=== PATIENT | female | born 1970 | race Caucasian/White ===

== ENCOUNTER → 2018-03-12 16:08 | Outpatient (REF) | payer MEDICAID, SELFPAY ==
[2018-03-12 19:22] LABS: Amphetamine/Metha Screen,Urine Negative ng/mL (<1000); Barbiturates Screen,Urine Negative ng/mL (<200); Benzodiazepines Screen,Urine Negative ng/mL (200); Cannabinoid Screen,Urine Negative ng/mL (<50); Cocaine Screen,Urine Negative ng/g (<300); Methadone Screen,Urine Negative ng/mL (<300); Opiate Screen,Urine Negative ng/mL (<300); Phencyclidine Screen,Urine Negative ng/mL (<25)
== END ==
LOC: LAB 16:08
PROVIDERS: Visit Provider Emergency Medicine
DX: Z79.899 Other long term (current) drug therapy (principal)
CPT/HCPCS: 80305

== ENCOUNTER → 2018-04-08 13:31 | Outpatient (REF) | payer MEDICAID, SELFPAY ==
[2018-04-08 19:20] LABS: Amphetamine/Metha Screen,Urine Negative ng/mL (<1000); Barbiturates Screen,Urine Negative ng/mL (<200); Benzodiazepines Screen,Urine Negative ng/mL (200); Cannabinoid Screen,Urine Negative ng/mL (<50); Cocaine Screen,Urine Negative ng/g (<300); Methadone Screen,Urine Negative ng/mL (<300); Opiate Screen,Urine Negative ng/mL (<300); Phencyclidine Screen,Urine Negative ng/mL (<25)
== END ==
LOC: LAB 13:31
PROVIDERS: Visit Provider Emergency Medicine
DX: Z79.899 Other long term (current) drug therapy (principal)
CPT/HCPCS: 80305

== ENCOUNTER → 2018-05-13 13:40 | Outpatient (REF) | payer MEDICAID, SELFPAY ==
[2018-05-13 18:29] LABS: Amphetamine/Metha Screen,Urine Negative ng/mL (<1000); Barbiturates Screen,Urine Negative ng/mL (<200); Benzodiazepines Screen,Urine Negative ng/mL (200); Cannabinoid Screen,Urine Negative ng/mL (<50); Cocaine Screen,Urine Negative ng/g (<300); Methadone Screen,Urine Negative ng/mL (<300); Opiate Screen,Urine Negative ng/mL (<300); Phencyclidine Screen,Urine Negative ng/mL (<25)
== END ==
LOC: LAB 13:40
PROVIDERS: Visit Provider Emergency Medicine
DX: Z79.899 Other long term (current) drug therapy (principal)
CPT/HCPCS: 80305

== ENCOUNTER → 2018-06-12 08:00 | Outpatient (CLI) | payer MEDICAID, SELFPAY ==
--- NOTE | 2018-06-12 08:03 | MR_ITS ---
MR lumbar spine wo con, MR 3-d myelogram/MRCP Ordering Physician: Willy Lechuga MD Patient Age: 47 years: Female HISTORY: ITS.REASON: back pain Low back pain for 5 years left leg pain inta TECHNIQUE: Sagittal STIR, T1, T2, axial T1 and T2. On 1.5T Siemens wide bore MRI. 3-D MR myelogram image set obtained & performed on MRI workstation. Additional sagittal thin section T2 weighted dataset obtained from this latter acquisition as well (---76 CPT) COMPARISON :None FINDINGS L5/S1 narrowed disc space. Reactive changes are seen about the anterior right aspect of this narrowed disc space. Diffuse disc bulge with additional leftward disc protrusion at left foramen., (nicely seen on sagittal slice 11 ,12, axial 15,.) There is some hypertrophic spurring of the left foramen contributing to this appearance is well, sagittal slice 12. These features along with facet hypertrophy yields a fairly pronounced left foraminal encroachment. It would correlate with L5 radicular symptoms is present. Neurosurgery consult warranted . L4/5: Mild eccentric disc bulge towards the left foramen. Increased signal at the posterior disc margin may reflect an area of annular fissure, sagittal slice 11. Moderate facet and ligament flavum hypertrophy. Overall Mild/moderate left foraminal encroachment L3/4. Disc intact scant bulge. Minor posterior element hypertrophy L2/3. Disc intact. L1/2 disc intact T12/L1 disc intact T11/12 mild disc space narrowing mild diffuse disc bulge 3-D MRI myelogram image set shows no significant stenosis at the thecal sac. There may be some subtle asymmetric density nerve roots at the L5-S1 level. The described disc protrusion is far lateral and yields little impact upon such. IMPRESSION: L5/S1 degenerated disc bulge with left left foraminal disc protrusion/herniation Prominent left foraminal encroachment encroaches upon the left L5 nerve root L4/5 asymmetric bulge to the left, yields mild/moderate left foraminal encroachment Possible high signal small annular fissure along this bulging posterior disc margin at left foramen at left foramen
== END ==
PROVIDERS: PCP Emergency Medicine; Visit Provider Emergency Medicine
DX: M54.9 Dorsalgia, unspecified (principal)
CPT/HCPCS: 72148; 76376

== ENCOUNTER → 2018-06-14 10:44 | Outpatient (REF) | payer MEDICAID, SELFPAY ==
[2018-06-14 14:17] LABS: Amphetamine/Metha Screen,Urine Negative ng/mL (<1000); Barbiturates Screen,Urine Negative ng/mL (<200); Benzodiazepines Screen,Urine Negative ng/mL (<200); Cannabinoid Screen,Urine Negative ng/mL (<50); Cocaine Screen,Urine Negative ng/mL (<300); Methadone Screen,Urine Negative ng/mL (<300); Opiate Screen,Urine Positive ng/mL (<300); Phencyclidine Screen,Urine Negative ng/mL (<25)
== END ==
LOC: LAB 10:44
PROVIDERS: Visit Provider Emergency Medicine
DX: Z79.899 Other long term (current) drug therapy (principal)
CPT/HCPCS: 80305

== ENCOUNTER → 2018-07-04 13:23 | Outpatient (POV) | payer MEDICAID, SELFPAY | PROVIDERS: PCP Emergency Medicine; Visit Provider Neurological Surgery | DX: Z00.00 Encounter for general adult medical examination without abnormal findings (principal) ==

== ENCOUNTER → 2018-07-10 10:46 | Outpatient (REF) | payer MEDICAID, SELFPAY ==
[2018-07-10 14:01] LABS: Amphetamine/Metha Screen,Urine Negative ng/mL (<1000); Barbiturates Screen,Urine Negative ng/mL (<200); Benzodiazepines Screen,Urine Negative ng/mL (<200); Cannabinoid Screen,Urine Negative ng/mL (<50); Cocaine Screen,Urine Negative ng/mL (<300); Methadone Screen,Urine Negative ng/mL (<300); Opiate Screen,Urine Negative ng/mL (<300); Phencyclidine Screen,Urine Negative ng/mL (<25)
== END ==
LOC: LAB 10:46
PROVIDERS: Visit Provider Emergency Medicine
DX: Z79.899 Other long term (current) drug therapy (principal)
CPT/HCPCS: 80305

== ENCOUNTER → 2018-08-29 08:36 | Outpatient (CLI) | payer MEDICAID, SELFPAY ==
--- NOTE | 2018-08-29 08:39 | XR_ITS ---
XR wrist RT min 3V Ordering Physician: Wayne Shane MD Patient Age: 48 years: Female HISTORY: ITS.REASON: right wrist pain TECHNIQUE: 3 views right wrist COMPARISON :None FINDINGS Right wrist intact with no acute appearing fracture evident.. On close inspection there is a small osseous density off the ulnar margin of the radius just distal to the ulnar base radial articulation. This seems to be corticated and most likely a small old fragment which measures 4.4 mm length x 2.5 mm wide.. Correlation required..Distal radius and ulna are otherwise unremarkable The proximal carpal row appears satisfactory with normal relationships. The fat plane along anterior wrist appears normal. IMPRESSION: No definitive acute findings or fracture. Small most likely old corticated small osseous fragment is seen along ulnar margin radius articular surface., just distal to the radial -ulnar articulation.. may reflect old trauma feature here . No prior films for comparison . Clinical correlation required.
== END ==
PROVIDERS: PCP Emergency Medicine; Visit Provider Orthopaedic Surgery
DX: M25.531 Pain in right wrist (principal)
CPT/HCPCS: 73110

== ENCOUNTER 2018-08-29 10:17 | Outpatient (RCR) | payer MEDICAID, SELFPAY | END 2018-08-29 13:45 | disposition home or self-care (01) | LOC: OT 10:17 | PROVIDERS: PCP Emergency Medicine; Visit Provider Orthopaedic Surgery | DX: G56.01 Carpal tunnel syndrome, right upper limb (principal) | CPT/HCPCS: 97760 ==

== ENCOUNTER → 2018-09-03 14:18 | Outpatient (REF) | payer MEDICAID, SELFPAY ==
[2018-09-03 21:08] LABS: Amphetamine/Metha Screen,Urine Negative ng/mL (<1000); Barbiturates Screen,Urine Negative ng/mL (<200); Benzodiazepines Screen,Urine Negative ng/mL (<200); Cannabinoid Screen,Urine Negative ng/mL (<50); Cocaine Screen,Urine Negative ng/mL (<300); Methadone Screen,Urine Negative ng/mL (<300); Opiate Screen,Urine Positive ng/mL (<300); Phencyclidine Screen,Urine Negative ng/mL (<25)
== END ==
LOC: LAB 14:18
PROVIDERS: Visit Provider Emergency Medicine
DX: Z79.899 Other long term (current) drug therapy (principal)
CPT/HCPCS: 80305

== ENCOUNTER → 2018-10-02 19:38 | Outpatient (CLI) | payer MEDICAID, SELFPAY ==
[2018-10-02 21:24] LABS: Amphetamine/Metha Screen,Urine Negative ng/mL (<1000); Barbiturates Screen,Urine Negative ng/mL (<200); Benzodiazepines Screen,Urine Negative ng/mL (<200); Cannabinoid Screen,Urine Negative ng/mL (<50); Cocaine Screen,Urine Negative ng/mL (<300); Methadone Screen,Urine Negative ng/mL (<300); Opiate Screen,Urine Positive ng/mL (<300); Phencyclidine Screen,Urine Negative ng/mL (<25)
== END ==
PROVIDERS: Visit Provider Emergency Medicine
DX: Z79.899 Other long term (current) drug therapy (principal)
CPT/HCPCS: 80305

== ENCOUNTER → 2018-11-01 14:46 | Outpatient (CLI) | payer MEDICAID, SELFPAY ==
[2018-11-01 16:39] LABS: Amphetamine/Metha Screen,Urine Negative ng/mL (<1000); Barbiturates Screen,Urine Negative ng/mL (<200); Benzodiazepines Screen,Urine Negative ng/mL (<200); Cannabinoid Screen,Urine Negative ng/mL (<50); Cocaine Screen,Urine Negative ng/mL (<300); Methadone Screen,Urine Negative ng/mL (<300); Opiate Screen,Urine Negative ng/mL (<300); Phencyclidine Screen,Urine Negative ng/mL (<25)
[2018-11-09 07:13] LABS: Oxycodone (GC/MS) 212 ng/mL (Cutoff=100)
[2018-11-09 14:00] LABS: Opiates Negative (Cutoff=100)
== END ==
PROVIDERS: Visit Provider Emergency Medicine
DX: Z79.899 Other long term (current) drug therapy (principal)
CPT/HCPCS: 80305; 80361; 80365; G0480

== ENCOUNTER → 2018-11-29 14:29 | Outpatient (CLI) | payer MEDICAID, SELFPAY ==
[2018-11-29 16:02] LABS: Amphetamine/Metha Screen,Urine Negative ng/mL (<1000); Barbiturates Screen,Urine Negative ng/mL (<200); Benzodiazepines Screen,Urine Negative ng/mL (<200); Cannabinoid Screen,Urine Negative ng/mL (<50); Cocaine Screen,Urine Positive ng/mL (<300); Methadone Screen,Urine Negative ng/mL (<300); Opiate Screen,Urine Negative ng/mL (<300); Phencyclidine Screen,Urine Negative ng/mL (<25)
[2018-12-05 07:18] LABS: Benzoylecgonine (GC/MS) 475 ng/mL (Cutoff=150); Cocaine + Metabolite Positive (.)
== END ==
PROVIDERS: Visit Provider Emergency Medicine
DX: Z79.899 Other long term (current) drug therapy (principal)
CPT/HCPCS: 80305; 80353

== ENCOUNTER → 2018-12-30 13:42 | Outpatient (CLI) | payer MEDICAID, SELFPAY ==
[2018-12-30 14:13] LABS: Amphetamine/Metha Screen,Urine Negative ng/mL (<1000); Barbiturates Screen,Urine Negative ng/mL (<200); Benzodiazepines Screen,Urine Negative ng/mL (<200); Cannabinoid Screen,Urine Negative ng/mL (<50); Cocaine Screen,Urine Negative ng/mL (<300); Methadone Screen,Urine Negative ng/mL (<300); Opiate Screen,Urine Negative ng/mL (<300); Phencyclidine Screen,Urine Negative ng/mL (<25)
== END ==
PROVIDERS: Visit Provider Emergency Medicine
DX: Z79.899 Other long term (current) drug therapy (principal)
CPT/HCPCS: 80305

== ENCOUNTER → 2019-01-06 13:32 | Outpatient (CLI) | payer MEDICAID, SELFPAY ==
[2019-01-06 14:28] LABS: Amphetamine/Metha Screen,Urine Negative ng/mL (<1000); Barbiturates Screen,Urine Negative ng/mL (<200); Benzodiazepines Screen,Urine Negative ng/mL (<200); Cannabinoid Screen,Urine Negative ng/mL (<50); Cocaine Screen,Urine Negative ng/mL (<300); Methadone Screen,Urine Negative ng/mL (<300); Opiate Screen,Urine Negative ng/mL (<300); Phencyclidine Screen,Urine Negative ng/mL (<25)
== END ==
PROVIDERS: Visit Provider Emergency Medicine
DX: Z79.899 Other long term (current) drug therapy (principal)
CPT/HCPCS: 80305

== ENCOUNTER → 2019-01-20 14:35 | Outpatient (CLI) | payer MEDICAID, SELFPAY ==
[2019-01-20 16:04] LABS: Amphetamine/Metha Screen,Urine Negative ng/mL (<1000); Barbiturates Screen,Urine Negative ng/mL (<200); Benzodiazepines Screen,Urine Negative ng/mL (<200); Cannabinoid Screen,Urine Negative ng/mL (<50); Cocaine Screen,Urine Negative ng/mL (<300); Methadone Screen,Urine Negative ng/mL (<300); Opiate Screen,Urine Negative ng/mL (<300); Phencyclidine Screen,Urine Negative ng/mL (<25)
[2019-01-27 17:11] LABS: Oxycodone (GC/MS) 685 ng/mL (Cutoff=100)
[2019-01-28 03:10] LABS: Opiates Negative (Cutoff=100); Oxymorphone (GC/MS) 257 ng/mL (Cutoff=100)
== END ==
PROVIDERS: Visit Provider Emergency Medicine
DX: Z79.899 Other long term (current) drug therapy (principal)
CPT/HCPCS: 80305; 80361; 80365; G0480

== ENCOUNTER → 2019-03-19 13:42 | Outpatient (CLI) | payer MEDICAID, SELFPAY ==
[2019-03-19 15:01] LABS: Amphetamine/Metha Screen,Urine Negative ng/mL (<1000); Barbiturates Screen,Urine Negative ng/mL (<200); Benzodiazepines Screen,Urine Negative ng/mL (<200); Cannabinoid Screen,Urine Negative ng/mL (<50); Cocaine Screen,Urine Negative ng/mL (<300); Methadone Screen,Urine Negative ng/mL (<300); Opiate Screen,Urine Positive ng/mL (<300); Phencyclidine Screen,Urine Negative ng/mL (<25)
== END ==
PROVIDERS: Visit Provider Emergency Medicine
DX: N39.0 Urinary tract infection, site not specified (principal); M54.9 Dorsalgia, unspecified
CPT/HCPCS: 80305; 87086; 87088; 87186

== ENCOUNTER → 2019-05-19 13:38 | Outpatient (CLI) | payer MEDICAID, SELFPAY ==
[2019-05-19 14:28] LABS: Amphetamine/Metha Screen,Urine Negative ng/mL (<1000); Barbiturates Screen,Urine Negative ng/mL (<200); Benzodiazepines Screen,Urine Negative ng/mL (<200); Cannabinoid Screen,Urine Negative ng/mL (<50); Cocaine Screen,Urine Negative ng/mL (<300); Methadone Screen,Urine Negative ng/mL (<300); Opiate Screen,Urine Negative ng/mL (<300); Phencyclidine Screen,Urine Negative ng/mL (<25)
== END ==
PROVIDERS: Visit Provider Emergency Medicine
DX: Z79.899 Other long term (current) drug therapy (principal)
CPT/HCPCS: 80305

== ENCOUNTER → 2019-07-18 08:06 | Outpatient (CLI) | payer MEDICAID, SELFPAY ==
[2019-07-22 13:11] LABS: Amphetamine/Metha Screen,Urine Negative ng/mL (<1000); Barbiturates Screen,Urine Negative ng/mL (<200); Benzodiazepines Screen,Urine Negative ng/mL (<200); Cannabinoid Screen,Urine Negative ng/mL (<50); Cocaine Screen,Urine Negative ng/mL (<300); Methadone Screen,Urine Negative ng/mL (<300); Opiate Screen,Urine Positive ng/mL (<300); Phencyclidine Screen,Urine Negative ng/mL (<25)
== END ==
PROVIDERS: Visit Provider Emergency Medicine
DX: M54.9 Dorsalgia, unspecified (principal)
CPT/HCPCS: 80305

== ENCOUNTER → 2019-09-16 13:24 | Outpatient (CLI) | payer MEDICAID, SELFPAY ==
[2019-09-16 14:31] LABS: Amphetamine/Metha Screen,Urine Negative ng/mL (<1000); Barbiturates Screen,Urine Negative ng/mL (<200); Benzodiazepines Screen,Urine Negative ng/mL (<200); Cannabinoid Screen,Urine Negative ng/mL (<50); Cocaine Screen,Urine Negative ng/mL (<300); Methadone Screen,Urine Negative ng/mL (<300); Opiate Screen,Urine Negative ng/mL (<300); Phencyclidine Screen,Urine Negative ng/mL (<25)
[2019-09-26 10:15] LABS: Oxycodone (GC/MS) 2750 ng/mL (Cutoff=100)
[2019-09-26 17:14] LABS: Opiates Negative (Cutoff=100)
== END ==
PROVIDERS: Visit Provider Emergency Medicine
DX: Z79.899 Other long term (current) drug therapy (principal)
CPT/HCPCS: 80305; 80361; 80365; G0480

== ENCOUNTER → 2019-11-03 14:26 | Outpatient (CLI) | payer MEDICAID, SELFPAY ==
[2019-11-03 16:11] LABS: Amphetamine/Metha Screen,Urine Negative ng/mL (<1000); Barbiturates Screen,Urine Negative ng/mL (<200); Benzodiazepines Screen,Urine Negative ng/mL (<200); Cannabinoid Screen,Urine Negative ng/mL (<50); Cocaine Screen,Urine Negative ng/mL (<300); Methadone Screen,Urine Negative ng/mL (<300); Opiate Screen,Urine Negative ng/mL (<300); Phencyclidine Screen,Urine Negative ng/mL (<25)
== END ==
PROVIDERS: Visit Provider Emergency Medicine
DX: M54.9 Dorsalgia, unspecified (principal); Z79.899 Other long term (current) drug therapy
CPT/HCPCS: 80305

== ENCOUNTER → 2020-06-01 14:36 | Outpatient (CLI) | payer MEDICAID, SELFPAY ==
[2020-06-01 14:52] LABS: Basophils % 0.7 % (0.1-2.0); Eosinophils # 0.1 K/mm3 (0.0-0.4); Eosinophils % 2.5 % (0.1-12.0); Hematocrit 46.7 % (37.0-47.0); Hemoglobin 15.8 g/dL (12.2-16.2); Lymphocytes # 1.7 K/mm3 (0.7-4.5); Mean Corpuscular HGB Conc 33.9 g/dL (31.8-35.4); Mean Corpuscular Hemoglobin 35.3 pg (27.0-31.2); Mean Corpuscular Volume 104.2 fl (81-99); Mean Platelet Volume 8.4 fl (7.4-10.4); Monocytes # 0.3 K/mm3 (0.1-1.0); Monocytes % 5.1 % (1.7-9.3); Neutrophils # 3.2 K/mm3 (1.8-7.8); Neutrophils % 59.7 % (37.0-80.0); Platelet Count 240 K/mm3 (142-424); Red Blood Count 4.48 M/mm3 (4.20-5.40); Red Cell Distribution Width 13.3 % (11.5-17.5); White Blood Count 5.4 K/mm3 (4.8-10.8)
[2020-06-01 15:09] LABS: Chloride 103 mmol/L (98-107); Sodium 139 mmol/L (136-145)
[2020-06-01 15:11] LABS: Alanine Aminotransferase 12 U/L (12-78); Aspartate Amino Transferase 30 U/L (14-36); Blood Urea Nitrogen 9 mg/dl (7-17); Estimated Glomerular Filt Rate 89 ml/min (>60); GFR (African American) 108 ML/MIN (>60)
[2020-06-01 15:12] LABS: Albumin Level 4.2 g/dl (3.5-5.0); Albumin/Globulin Ratio 1.6 (1.1-1.8); Alkaline Phosphatase 95 U/L (38-126); Bilirubin,Total 0.8 mg/dl (0.2-1.3); Calcium 9.3 mg/dl (8.4-10.2); Carbon Dioxide 28 mmol/L (22.0-30.0); Chol/HDL Ratio 2.8 (1-3.5); Cholesterol 196 mg/dl (140-200); Globulin 2.7 g/dL (1.3-3.2); Glucose 66 mg/dl (74-100); HDL Cholesterol 71 mg/dl (40-60); Total Protein,Serum 6.9 g/dl (6.3-8.2); Triglycerides 110 mg/dl (30-150); VLDL Cholesterol 22 mg/dL (0-40)
[2020-06-01 15:23] LABS: Direct LDL Cholesterol 111.09 mg/dL (100-129)
[2020-06-01 15:29] LABS: T4 (Thyroxine) 4.6 ug/dl (5.53-11.0)
[2020-06-01 15:42] LABS: Thyroid Stimulating Hormone 4.68 uIU/mL (0.465-4.68)
[2020-06-04 15:31] LABS: Vitamin B12 280 pg/mL (232-1245)
[2020-06-08 15:18] LABS: 1,25 Dihydroxy Vitamin D 55 pg/mL (.); 1,25-Dihydroxy, Vitamin D-2 <10 pg/mL (.); 1,25-Dihydroxy, Vitamin D-3 54 pg/mL (.)
== END ==
PROVIDERS: Physician Assistant; Visit Provider Emergency Medicine
DX: F41.9 Anxiety disorder, unspecified (principal); E53.8 Deficiency of other specified B group vitamins
CPT/HCPCS: 80053; 80061; 82607; 82652; 84436; 84443; 85025

== ENCOUNTER → 2020-10-19 09:54 | Outpatient (CLI) | payer MEDICAID, SELFPAY ==
--- NOTE | 2020-10-19 09:54 | MM_ITS ---
PROCEDURE: MM DIG SCREENING MAMM BI W/CAD Digital Breast Tomosynthesis Included CLINICAL INDICATION: screening There is no personal or family history of breast cancer. COMPARISON: [facility] MAMMO SCREENING DIGITAL BILAT from 07/06/2015 outside films MG Screening-Bilateral Mammography from 11/01/2017 outside films TECHNIQUE: Standard CC and MLO images and 3D Tomosynthesis was obtained. R2 CAD reviewed. FINDINGS: Moderate diffuse fibroglandular densities are seen throughout both breasts. There is a mole marker right breast. The findings are bilateral and symmetrical. There is no new or suspicious lesion in either breast and no suspicious microcalcifications. IMPRESSION: Moderate breast density with no suspicious lesions seen BI-RAD Category: 2 Benign Finding(s) FOLLOW-UP: 1YR 1 Year Follow-up (A letter has been sent to the patient regarding results of the study.) Dictated by: Dr. Duane Toro MD 10/28/2020 15:42 Dr. Duane Toro MD in [place] 10/28/2020 15:42
== END ==
PROVIDERS: PCP Emergency Medicine; Visit Provider Emergency Medicine
DX: Z12.31 Encounter for screening mammogram for malignant neoplasm of breast (principal)
CPT/HCPCS: 77063; 77067

== ENCOUNTER → 2021-03-18 14:27 | Outpatient (CLI) | payer MEDICAID, SELFPAY ==
[2021-03-18 15:50] LABS: Amphetamine/Metha Screen,Urine Negative ng/ml (<1000); Barbiturates Screen,Urine Negative ng/ml (<200)
[2021-03-18 15:51] LABS: Benzodiazepines Screen,Urine Negative ng/ml (<200); Cannabinoid Screen,Urine Negative ng/ml (<50)
[2021-03-18 15:53] LABS: Cocaine Screen,Urine Negative ng/ml (<300); Methadone Screen,Urine Negative ng/ml (<300)
[2021-03-18 15:54] LABS: Opiate Screen,Urine Negative ng/ml (<300)
[2021-03-18 15:55] LABS: Phencyclidine Screen,Urine Negative ng/ml (<25)
== END ==
PROVIDERS: Visit Provider Emergency Medicine
DX: Z79.899 Other long term (current) drug therapy (principal)
CPT/HCPCS: 80305

== ENCOUNTER → 2021-05-18 13:01 | Outpatient (CLI) | payer MEDICAID, SELFPAY ==
[2021-05-18 14:03] LABS: Amphetamine/Metha Screen,Urine Negative ng/ml (<1000)
[2021-05-18 14:04] LABS: Barbiturates Screen,Urine Negative ng/ml (<200)
[2021-05-18 14:06] LABS: Benzodiazepines Screen,Urine Negative ng/ml (<200); Cannabinoid Screen,Urine Positive ng/ml (<50)
[2021-05-18 14:07] LABS: Cocaine Screen,Urine Positive ng/ml (<300)
[2021-05-18 14:08] LABS: Methadone Screen,Urine Negative ng/ml (<300)
[2021-05-18 14:09] LABS: Opiate Screen,Urine Positive ng/ml (<300)
[2021-05-18 14:10] LABS: Phencyclidine Screen,Urine Negative ng/ml (<25)
== END ==
PROVIDERS: Visit Provider Emergency Medicine
DX: Z79.899 Other long term (current) drug therapy (principal); R82.90 Unspecified abnormal findings in urine; Z51.81 Encounter for therapeutic drug level monitoring; Z79.891 Long term (current) use of opiate analgesic
CPT/HCPCS: 80305; 87086

== ENCOUNTER → 2021-06-21 19:59 | Outpatient (CLI) | payer MEDICAID, SELFPAY ==
[2021-06-21 21:10] LABS: Amphetamine/Metha Screen,Urine Negative ng/ml (<1000)
[2021-06-21 21:11] LABS: Barbiturates Screen,Urine Negative ng/ml (<200)
[2021-06-21 21:13] LABS: Benzodiazepines Screen,Urine Positive ng/ml (<200); Cannabinoid Screen,Urine Negative ng/ml (<50)
[2021-06-21 21:14] LABS: Cocaine Screen,Urine Negative ng/ml (<300)
[2021-06-21 21:15] LABS: Methadone Screen,Urine Negative ng/ml (<300); Opiate Screen,Urine Negative ng/ml (<300)
[2021-06-21 21:16] LABS: Phencyclidine Screen,Urine Negative ng/ml (<25)
== END ==
PROVIDERS: Visit Provider Emergency Medicine
DX: Z79.899 Other long term (current) drug therapy (principal)
CPT/HCPCS: 80305

== ENCOUNTER → 2021-07-29 17:53 | Outpatient (CLI) | payer MEDICAID, SELFPAY ==
[2021-07-29 19:44] LABS: Barbiturates Screen,Urine Negative ng/ml (<200)
[2021-07-29 19:45] LABS: Amphetamine/Metha Screen,Urine Negative ng/ml (<1000); Benzodiazepines Screen,Urine Positive ng/ml (<200)
[2021-07-29 19:46] LABS: Cocaine Screen,Urine Negative ng/ml (<300)
[2021-07-29 19:47] LABS: Cannabinoid Screen,Urine Negative ng/ml (<50); Methadone Screen,Urine Negative ng/ml (<300)
[2021-07-29 19:48] LABS: Opiate Screen,Urine Positive ng/ml (<300); Phencyclidine Screen,Urine Negative ng/ml (<25)
== END ==
PROVIDERS: Visit Provider Emergency Medicine
DX: Z79.899 Other long term (current) drug therapy (principal)
CPT/HCPCS: 80305

== ENCOUNTER → 2021-10-28 13:42 | Outpatient (CLI) | payer MEDICAID, SELFPAY ==
[2021-10-28 14:31] LABS: Benzodiazepines Screen,Urine Negative ng/ml (<200)
[2021-10-28 14:32] LABS: Barbiturates Screen,Urine Negative ng/ml (<200)
[2021-10-28 14:33] LABS: Cannabinoid Screen,Urine Positive ng/ml (<50)
[2021-10-28 14:34] LABS: Cocaine Screen,Urine Positive ng/ml (<300); Methadone Screen,Urine Negative ng/ml (<300)
[2021-10-28 14:35] LABS: Opiate Screen,Urine Positive ng/ml (<300)
[2021-10-28 14:36] LABS: Phencyclidine Screen,Urine Negative ng/ml (<25)
[2021-10-28 21:54] LABS: Amphetamine/Metha Screen,Urine Positive ng/ml (<1000)
== END ==
PROVIDERS: Visit Provider Emergency Medicine
DX: M51.16 Intervertebral disc disorders with radiculopathy, lumbar region (principal)
CPT/HCPCS: 80305

== ENCOUNTER → 2021-11-28 12:33 | Outpatient (CLI) | payer MEDICAID, SELFPAY | PROVIDERS: PCP Emergency Medicine; Visit Provider Nurse Practitioner | DX: U07.1 COVID-19 (principal) | CPT/HCPCS: C9803; U0003; U0005 ==

== ENCOUNTER → 2021-11-28 13:58 | Outpatient (CLI) | payer MEDICAID, SELFPAY ==
[2021-11-28 14:53] LABS: Amphetamine/Metha Screen,Urine Negative ng/ml (<1000)
[2021-11-28 14:55] LABS: Barbiturates Screen,Urine Negative ng/ml (<200); Cannabinoid Screen,Urine Negative ng/ml (<50)
[2021-11-28 14:56] LABS: Benzodiazepines Screen,Urine Negative ng/ml (<200); Cocaine Screen,Urine Negative ng/ml (<300)
[2021-11-28 14:57] LABS: Methadone Screen,Urine Negative ng/ml (<300)
[2021-11-28 14:58] LABS: Opiate Screen,Urine Negative ng/ml (<300); Phencyclidine Screen,Urine Negative ng/ml (<25)
== END ==
PROVIDERS: Visit Provider Emergency Medicine
DX: M51.16 Intervertebral disc disorders with radiculopathy, lumbar region (principal)
CPT/HCPCS: 80305

== ENCOUNTER → 2022-01-20 11:40 | Outpatient (CLI) | payer MEDICAID, SELFPAY ==
[2022-01-20 18:21] LABS: Amphetamine/Metha Screen,Urine Negative ng/ml (<1000); Barbiturates Screen,Urine Negative ng/ml (<200)
[2022-01-20 18:22] LABS: Benzodiazepines Screen,Urine Negative ng/ml (<200)
[2022-01-20 18:23] LABS: Cannabinoid Screen,Urine Negative ng/ml (<50); Cocaine Screen,Urine Negative ng/ml (<300)
[2022-01-20 18:24] LABS: Methadone Screen,Urine Negative ng/ml (<300)
[2022-01-20 18:25] LABS: Opiate Screen,Urine Positive ng/ml (<300)
[2022-01-20 18:26] LABS: Phencyclidine Screen,Urine Negative ng/ml (<25)
== END ==
PROVIDERS: Visit Provider Emergency Medicine
DX: M51.16 Intervertebral disc disorders with radiculopathy, lumbar region (principal)
CPT/HCPCS: 80305

== ENCOUNTER → 2022-03-27 11:30 | Outpatient (CLI) | payer MEDICAID, SELFPAY ==
[2022-03-27 13:43] LABS: Phencyclidine Screen,Urine Negative ng/ml (<25)
[2022-03-27 13:44] LABS: Amphetamine/Metha Screen,Urine Negative ng/ml (<1000)
[2022-03-27 13:45] LABS: Barbiturates Screen,Urine Negative ng/ml (<200)
[2022-03-27 13:46] LABS: Benzodiazepines Screen,Urine Negative ng/ml (<200); Cannabinoid Screen,Urine Negative ng/ml (<50)
[2022-03-27 13:47] LABS: Cocaine Screen,Urine Positive ng/ml (<300); Methadone Screen,Urine Negative ng/ml (<300)
[2022-03-27 13:48] LABS: Opiate Screen,Urine Positive ng/ml (<300)
== END ==
PROVIDERS: PCP Emergency Medicine; Visit Provider Emergency Medicine
DX: Z79.899 Other long term (current) drug therapy (principal)
CPT/HCPCS: 80305

== ENCOUNTER → 2022-05-24 13:55 | Outpatient (CLI) | payer MEDICAID, SELFPAY ==
[2022-05-24 13:42] LABS: Barbiturates Screen,Urine Negative ng/ml (<200)
[2022-05-24 13:43] LABS: Benzodiazepines Screen,Urine Negative ng/ml (<200); Cannabinoid Screen,Urine Positive ng/ml (<50)
[2022-05-24 13:44] LABS: Cocaine Screen,Urine Positive ng/ml (<300)
[2022-05-24 13:45] LABS: Methadone Screen,Urine Negative ng/ml (<300); Opiate Screen,Urine Negative ng/ml (<300)
[2022-05-24 13:46] LABS: Phencyclidine Screen,Urine Negative ng/ml (<25)
[2022-05-24 15:43] LABS: Amphetamine/Metha Screen,Urine Positive ng/ml (<1000)
== END ==
PROVIDERS: PCP Emergency Medicine; Visit Provider Emergency Medicine
DX: Z79.899 Other long term (current) drug therapy (principal)
CPT/HCPCS: 80305

== ENCOUNTER → 2022-07-19 06:25 | Outpatient (CLI) | payer MEDICAID, SELFPAY ==
[2022-07-19 18:44] LABS: Amphetamine/Metha Screen,Urine Negative ng/ml (<1000); Barbiturates Screen,Urine Negative ng/ml (<200)
[2022-07-19 18:45] LABS: Benzodiazepines Screen,Urine Negative ng/ml (<200); Cannabinoid Screen,Urine Positive ng/ml (<50)
[2022-07-19 18:46] LABS: Cocaine Screen,Urine Positive ng/ml (<300)
[2022-07-19 18:47] LABS: Methadone Screen,Urine Negative ng/ml (<300); Opiate Screen,Urine Negative ng/ml (<300)
[2022-07-19 18:48] LABS: Phencyclidine Screen,Urine Negative ng/ml (<25)
== END ==
PROVIDERS: PCP Emergency Medicine; Visit Provider Emergency Medicine
DX: Z79.899 Other long term (current) drug therapy (principal)
CPT/HCPCS: 80305

== ENCOUNTER → 2022-08-18 15:56 | Outpatient (CLI) | payer MEDICAID, SELFPAY ==
[2022-08-18 14:53] LABS: Barbiturates Screen,Urine Negative ng/ml (<200)
[2022-08-18 14:54] LABS: Amphetamine/Metha Screen,Urine Negative ng/ml (<1000); Benzodiazepines Screen,Urine Negative ng/ml (<200)
[2022-08-18 14:55] LABS: Cannabinoid Screen,Urine Negative ng/ml (<50)
[2022-08-18 14:57] LABS: Methadone Screen,Urine Negative ng/ml (<300)
[2022-08-18 14:58] LABS: Cocaine Screen,Urine Negative ng/ml (<300); Opiate Screen,Urine Positive ng/ml (<300)
[2022-08-18 14:59] LABS: Phencyclidine Screen,Urine Negative ng/ml (<25)
== END ==
PROVIDERS: PCP Emergency Medicine; Visit Provider Emergency Medicine
DX: Z79.899 Other long term (current) drug therapy (principal)
CPT/HCPCS: 80305

== ENCOUNTER → 2022-09-15 14:40 | Outpatient (CLI) | payer MEDICAID, SELFPAY ==
[2022-09-15 16:47] LABS: Coronavirus 19, PCR Not Detected (NotDetected); Influenza A, PCR Not Detected (NotDetected); Influenza B, PCR Not Detected (NotDetected)
[2022-09-15 17:47] LABS: Amphetamine/Metha Screen,Urine Negative ng/ml (<1000)
[2022-09-15 17:48] LABS: Barbiturates Screen,Urine Negative ng/ml (<200); Benzodiazepines Screen,Urine Negative ng/ml (<200)
[2022-09-15 17:49] LABS: Cannabinoid Screen,Urine Negative ng/ml (<50)
[2022-09-15 17:50] LABS: Cocaine Screen,Urine Negative ng/ml (<300); Methadone Screen,Urine Negative ng/ml (<300)
[2022-09-15 17:51] LABS: Opiate Screen,Urine Positive ng/ml (<300)
[2022-09-15 17:55] LABS: Phencyclidine Screen,Urine Negative ng/ml (<25)
== END ==
PROVIDERS: PCP Emergency Medicine; Visit Provider Emergency Medicine
DX: Z20.822 Contact with and (suspected) exposure to COVID-19 (principal); R09.89 Other specified symptoms and signs involving the circulatory and respiratory systems; Z79.899 Other long term (current) drug therapy
CPT/HCPCS: 80305; C9803; U0003; U0005

== ENCOUNTER → 2022-11-29 09:30 | Outpatient (CLI) | payer MEDICAID, SELFPAY ==
[2022-11-29 16:21] LABS: Benzodiazepines Screen,Urine Negative ng/ml (<200)
[2022-11-29 16:22] LABS: Amphetamine/Metha Screen,Urine Negative ng/ml (<1000); Barbiturates Screen,Urine Negative ng/ml (<200)
[2022-11-29 16:23] LABS: Cannabinoid Screen,Urine Negative ng/ml (<50)
[2022-11-29 16:24] LABS: Cocaine Screen,Urine Negative ng/ml (<300); Methadone Screen,Urine Negative ng/ml (<300)
[2022-11-29 16:25] LABS: Opiate Screen,Urine Negative ng/ml (<300)
[2022-11-29 16:36] LABS: Phencyclidine Screen,Urine Negative ng/ml (<25)
== END ==
PROVIDERS: PCP Emergency Medicine; Visit Provider Emergency Medicine
DX: Z79.899 Other long term (current) drug therapy (principal)
CPT/HCPCS: 80305

== ENCOUNTER → 2023-01-26 11:20 | Outpatient (CLI) | payer MEDICAID, SELFPAY ==
[2023-01-26 19:08] LABS: Amphetamine/Metha Screen,Urine Negative ng/ml (<1000)
[2023-01-26 19:09] LABS: Benzodiazepines Screen,Urine Negative ng/ml (<200); Cannabinoid Screen,Urine Negative ng/ml (<50)
[2023-01-26 19:10] LABS: Barbiturates Screen,Urine Negative ng/ml (<200)
[2023-01-26 19:11] LABS: Cocaine Screen,Urine Negative ng/ml (<300); Methadone Screen,Urine Negative ng/ml (<300)
[2023-01-26 19:12] LABS: Opiate Screen,Urine Positive ng/ml (<300); Phencyclidine Screen,Urine Negative ng/ml (<25)
== END ==
PROVIDERS: PCP Emergency Medicine; Visit Provider Emergency Medicine
DX: Z79.899 Other long term (current) drug therapy (principal)
CPT/HCPCS: 80305

== ENCOUNTER 2023-04-04 14:17 | Emergency (ER) | payer MEDICAID, SELFPAY ==
[2023-04-04 14:17] VITALS: BP 143/85; PULSE 99; RESP 20; TEMP 36.8; O2SAT 97; BMI 18.6
--- NOTE | 2023-04-04 14:24 | PC.NURSE ---
Patient has decided to leave AMA. VSS currently; however, explained to patient that she could still overdose with her previous IVD from previous. Patient states she understands. Patient signed AMA form.
[2023-04-04 14:32] VITALS: BP 143/50; PULSE 97; RESP 19; TEMP 36.8; O2SAT 97
== END 2023-04-04 14:25 | disposition left against medical advice (07) ==
PROVIDERS: Emergency Provider Emergency Medicine; PCP Emergency Medicine
DX: Z53.21 Procedure and treatment not carried out due to patient leaving prior to being seen by health care provider (principal)
CPT/HCPCS: 99211

== ENCOUNTER → 2023-04-04 23:22 | Outpatient (CLI) | payer MEDICAID, SELFPAY ==
[2023-04-04 18:08] LABS: Microscopic, Urine URINE MICROSCOPIC (MICROSCOPIC)
[2023-04-04 20:54] LABS: Appearance,Urine CLOUDY (Clear); Bilirubin,Urine Negative (Negative); Blood, Urine TRACE-L (Negative); Color,Urine YELLOW (Yellow); Glucose,Urine (UA) Negative (Negative); Ketones,Urine Negative (Negative); Leukocyte Esterase,Urine 2+ (Negative); Nitrate,Urine POSITIVE (Negative); PH,Urine 5.5 (5.0-8.5); Protein,Urine Negative (Negative); Specific Gravity, Urine >= 1.030 (1.005-1.030); Urobilinogen,Urine 0.2 EU/dl (0.2)
[2023-04-04 22:11] LABS: Bacteria,Urine 2+ /lpf; WBC,Urine 20-50 #/hpf (0-3)
[2023-04-04 22:36] LABS: Amphetamine/Metha Screen,Urine Negative ng/ml (<1000); Barbiturates Screen,Urine Negative ng/ml (<200)
[2023-04-04 22:37] LABS: Benzodiazepines Screen,Urine Negative ng/ml (<200)
[2023-04-04 22:38] LABS: Cannabinoid Screen,Urine Negative ng/ml (<50)
[2023-04-04 22:39] LABS: Opiate Screen,Urine Negative ng/ml (<300)
[2023-04-04 22:40] LABS: Cocaine Screen,Urine Negative ng/ml (<300); Methadone Screen,Urine Negative ng/ml (<300)
[2023-04-04 22:41] LABS: Phencyclidine Screen,Urine Negative ng/ml (<25)
== END ==
PROVIDERS: PCP Emergency Medicine; Visit Provider Emergency Medicine
DX: Z79.899 Other long term (current) drug therapy (principal); N39.0 Urinary tract infection, site not specified; B96.29 Other Escherichia coli [E. coli] as the cause of diseases classified elsewhere
CPT/HCPCS: 80305; 81001; 87086; 87088; 87186

== ENCOUNTER → 2023-06-08 14:14 | Outpatient (CLI) | payer MEDICAID, SELFPAY ==
[2023-06-08 13:06] LABS: Alanine Aminotransferase 17 U/L (12-78); Albumin Level 4.2 g/dl (3.5-5.0); Albumin/Globulin Ratio 1.6 (1.1-1.8); Alkaline Phosphatase 137 U/L (38-126); Anion Gap 10.6 mEq/L (5-15); Aspartate Amino Transferase 27 U/L (14-36); Bilirubin,Total 0.4 mg/dl (0.2-1.3); Blood Urea Nitrogen 10 mg/dl (7-17); Carbon Dioxide 31 mmol/L (22.0-30.0); Chloride 105 mmol/L (98-107); Chol/HDL Ratio 2.5 (1-3.5); Cholesterol 180 mg/dl (140-200); Estimated Glomerular Filt Rate 88 ml/min (>60); GFR (African American) 106 ML/MIN (>60); Globulin 2.6 g/dL (1.3-3.2); Glucose 84 mg/dl (74-100); HDL Cholesterol 73 mg/dl (40-60); Potassium 3.6 mmoL/L (3.5-5.1); Sodium 143 mmol/L (136-145); Total Protein,Serum 6.8 g/dl (6.3-8.2); Triglycerides 96 mg/dl (30-150); VLDL Cholesterol 19 mg/dL (0-40)
[2023-06-08 13:14] LABS: Amphetamine/Metha Screen,Urine Negative ng/ml (<1000)
[2023-06-08 13:15] LABS: Barbiturates Screen,Urine Negative ng/ml (<200)
[2023-06-08 13:16] LABS: Benzodiazepines Screen,Urine Negative ng/ml (<200); Cannabinoid Screen,Urine Negative ng/ml (<50)
[2023-06-08 13:17] LABS: Cocaine Screen,Urine Negative ng/ml (<300); Direct LDL Cholesterol 93.83 mg/dL (100-129); Methadone Screen,Urine Negative ng/ml (<300)
[2023-06-08 13:18] LABS: Opiate Screen,Urine Negative ng/ml (<300)
[2023-06-08 13:19] LABS: Phencyclidine Screen,Urine Negative ng/ml (<25)
[2023-06-08 13:27] LABS: T4 (Thyroxine) 5.7 ug/dl (5.53-11.0)
[2023-06-08 13:28] LABS: 25-OH Vitamin D, Total 32.2 ng/mL (30-100)
[2023-06-08 13:41] LABS: Thyroid Stimulating Hormone 4.21 uIU/mL (0.465-4.68)
[2023-06-08 13:42] LABS: Basophils # 0.1 K/mm3 (0-0.2); Basophils % 0.8 % (0.1-2.0); Eosinophils # 0.1 K/mm3 (0.0-0.4); Eosinophils % 1.6 % (0.1-12.0); Hematocrit 40.9 % (37.0-47.0); Hemoglobin 13.9 g/dL (12.2-16.2); Lymphocytes # 1.8 K/mm3 (0.7-4.5); Lymphocytes % 24.9 % (10-50); Mean Corpuscular HGB Conc 33.9 g/dL (31.8-35.4); Mean Corpuscular Volume 100.5 fl (81-99); Mean Platelet Volume 7.1 fl (7.4-10.4); Monocytes # 0.4 K/mm3 (0.1-1.0); Monocytes % 5.4 % (1.7-9.3); Neutrophils # 4.7 K/mm3 (1.8-7.8); Neutrophils % 67.3 % (37.0-80.0); Platelet Count 339 K/mm3 (142-424); Red Blood Count 4.07 M/mm3 (4.20-5.40); Red Cell Distribution Width 13.9 % (11.5-17.5); White Blood Count 7.1 K/mm3 (4.8-10.8)
[2023-06-08 14:00] LABS: Vitamin B12 316 pg/mL (239-931)
[2023-06-11 10:34] LABS: Intact Parathyroid Hormone 43.3 pg/mL (7.5-53.5)
== END ==
PROVIDERS: PCP Emergency Medicine; Visit Provider Emergency Medicine
DX: M51.16 Intervertebral disc disorders with radiculopathy, lumbar region (principal); M54.9 Dorsalgia, unspecified; E53.8 Deficiency of other specified B group vitamins; Z79.899 Other long term (current) drug therapy
CPT/HCPCS: 80053; 80061; 80305; 82306; 82607; 83970; 84436; 84443; 85025; 87086

== ENCOUNTER → 2023-06-11 14:05 | Outpatient (CLI) | payer MEDICAID, SELFPAY | PROVIDERS: PCP Emergency Medicine; Visit Provider Emergency Medicine | DX: R74.8 Abnormal levels of other serum enzymes (principal) | CPT/HCPCS: 83970 ==

== ENCOUNTER → 2023-08-06 16:30 | Outpatient (CLI) | payer MEDICAID, SELFPAY ==
[2023-08-06 19:37] LABS: Amphetamine/Metha Screen,Urine Negative ng/ml (<1000)
[2023-08-06 19:39] LABS: Benzodiazepines Screen,Urine Positive ng/ml (<200); Cannabinoid Screen,Urine Negative ng/ml (<50)
[2023-08-06 19:40] LABS: Barbiturates Screen,Urine Negative ng/ml (<200)
[2023-08-06 19:41] LABS: Cocaine Screen,Urine Negative ng/ml (<300); Opiate Screen,Urine Negative ng/ml (<300)
[2023-08-06 19:42] LABS: Methadone Screen,Urine Negative ng/ml (<300)
[2023-08-06 19:43] LABS: Phencyclidine Screen,Urine Negative ng/ml (<25)
== END ==
PROVIDERS: PCP Emergency Medicine; Visit Provider Emergency Medicine
DX: Z79.899 Other long term (current) drug therapy (principal)
CPT/HCPCS: 80305

== ENCOUNTER → 2023-10-05 12:00 | Outpatient (CLI) | payer MEDICAID, SELFPAY ==
[2023-10-05 19:41] LABS: Barbiturates Screen,Urine Negative ng/ml (<200)
[2023-10-05 19:42] LABS: Benzodiazepines Screen,Urine Negative ng/ml (<200)
[2023-10-05 19:43] LABS: Cannabinoid Screen,Urine Negative ng/ml (<50)
[2023-10-05 19:44] LABS: Cocaine Screen,Urine Negative ng/ml (<300)
[2023-10-05 19:45] LABS: Methadone Screen,Urine Negative ng/ml (<300); Opiate Screen,Urine Negative ng/ml (<300)
[2023-10-05 19:48] LABS: Phencyclidine Screen,Urine Negative ng/ml (<25)
[2023-10-05 19:58] LABS: Amphetamine/Metha Screen,Urine Negative ng/ml (<1000)
== END ==
PROVIDERS: PCP Emergency Medicine; Visit Provider Emergency Medicine
DX: M51.16 Intervertebral disc disorders with radiculopathy, lumbar region (principal)
CPT/HCPCS: 80305

== ENCOUNTER 2023-12-11 20:21 | Outpatient (CLI) | payer MEDICAID, SELFPAY ==
[2023-12-11 22:09] LABS: Amphetamine/Metha Screen,Urine Negative ng/ml (<1000)
[2023-12-11 22:10] LABS: Barbiturates Screen,Urine Negative ng/ml (<200)
[2023-12-11 22:11] LABS: Benzodiazepines Screen,Urine Negative ng/ml (<200); Cannabinoid Screen,Urine Negative ng/ml (<50)
[2023-12-11 22:12] LABS: Cocaine Screen,Urine Negative ng/ml (<300); Methadone Screen,Urine Negative ng/ml (<300)
[2023-12-11 22:13] LABS: Opiate Screen,Urine Negative ng/ml (<300)
[2023-12-11 22:14] LABS: Phencyclidine Screen,Urine Negative ng/ml (<25)
[2023-12-16 17:23] LABS: Gabapentin,Urine Negative (.)
[2023-12-18 18:07] LABS: Alprazolam Negative (Cutoff=100); Benzodiazepines Negative ng/mL (Cutoff=100); Clonazepam Negative (Cutoff=100); Flurazepam Negative (Cutoff=100); Lorazepam Negative (Cutoff=100); Midazolam Negative (Cutoff=100); Opiates Negative (Cutoff=100); Temazepam Negative (Cutoff=100); Triazolam Negative (Cutoff=100)
== END 2023-12-11 23:59 ==
LOC: LAB.DROPOF 20:21
PROVIDERS: PCP Nurse Practitioner Family; Visit Provider Nurse Practitioner Family
DX: F41.9 Anxiety disorder, unspecified (principal); Z79.899 Other long term (current) drug therapy
CPT/HCPCS: 80307; 80346; 80361; 80365; G0480